=== PATIENT | female | born 1955 | race Caucasian/White ===

== ENCOUNTER → 2024-12-12 13:51 | Outpatient (BNVA) | payer MEDICARE, SELFPAY | PROVIDERS: PCP Family Medicine; Visit Provider Podiatrist Foot & Ankle Surgery | DX: M79.672 Pain in left foot (principal); M10.9 Gout, unspecified | CPT/HCPCS: 73630; 99203 ==

== ENCOUNTER → 2025-01-02 14:48 | Outpatient (BNVA) | payer MEDICARE, SELFPAY | PROVIDERS: PCP Family Medicine; Visit Provider Podiatrist Foot & Ankle Surgery | DX: M10.9 Gout, unspecified (principal) | CPT/HCPCS: 99213 ==